=== PATIENT | female | born 1960 | race Caucasian/White ===

== ENCOUNTER 2017-05-18 11:26 | Day surgery (SDC) | payer OTHER ==
[2017-05-18 11:55] VITALS: BMI 34.3
[2017-05-18 12:32] VITALS: TEMP 98.1
[2017-05-18 14:31] VITALS: BP 135/73; PULSE 60
== END 2017-05-18 14:32 | disposition home or self-care (01) ==
LOC: JASU-ENDO 11:26
PROVIDERS: ATTEND Internal Medicine Gastroenterology
PROC: 0DJD8ZZ Inspection of Lower Intestinal Tract, Via Natural or Artificial Opening Endoscopic (ICD-10-PCS; principal; 2017-05-18 12:30)
DX: Z12.11 Encounter for screening for malignant neoplasm of colon (principal); K57.30 Diverticulosis of large intestine without perforation or abscess without bleeding; K64.8 Other hemorrhoids

== ENCOUNTER 2017-12-04 08:21 | Emergency (ER) | payer OTHER ==
--- NOTE | 2017-12-04 08:42 | PDOC ---
History of Present Illness - General Chief Complaint: Respiratory Stated Complaint: PT WANTS TO BE RE CHECKED FOR RESPIRATORY PRB Time Seen by Provider: 12/04/17 08:24 History Source: Patient Exam Limitations: No Limitations - History of Present Illness Initial Comments: 12/04/17 08:38 57 y/o female with history of breast cancer, presents to the ER with mild chest pressure and cough. Patient states that she has seen her PMD twice in 1 week and placed on inhaler and antibiotic. Patient denies any hx of asthma. No wheezing. No back pain, fever or chills. No N/V/d/C. No fall or trauma. Denies traveling as well. Timing/Duration: reports: week Severity: reports: mild Associated Symptoms: reports: chest pain/soreness, cough Past History - Past Medical History Allergies/Adverse Reactions: Allergies Allergy/AdvReac Type Severity Reaction Status Date / Time No Known Drug Allergies Allergy Verified 06/18/16 11:05 Home Medications: Ambulatory Orders Losartan 50Mg/Hctz 12.5MG [Hyzaar -] 1 tab PO DAILY 07/03/13 Anastrozole [Arimidex -] 1 mg PO DAILY 06/18/16 Albuterol Sulfate Inhaler - [Ventolin HFA Inhaler -] 2 puff IH QID 12/04/17 Amoxicillin - [Amoxicillin 875mg Tablet -] 875 mg PO BID 12/04/17 Benzonatate 100 mg PO BID 12/04/17 Anemia: No Asthma: No Cancer: Yes (BREAST, radiation) Cardiac Disorders: No CVA: No COPD: No CHF: No Dementia: No Diabetes: No GI Disorders: Yes (GERD) Disorders: No HTN: Yes Hypercholesterolemia: No Liver Disease: No Seizures: No Thyroid Disease: No - Surgical History Abdominal Surgery: Yes Appendectomy: No Cardiac Surgery: No Cholecystectomy: Yes Lung Surgery: No Neurologic Surgery: No Orthopedic Surgery: Yes (FOOT SURGERY LEFT) - Suicide/Smoking/Psychosocial Hx Smoking Status: No Smoking History: Former smoker Have you smoked in the past 12 months: No Number of Cigarettes Smoked Daily: 0 If you are a former smoker, when did you quit?: 30 yrs ago Hx Alcohol Use: Yes (OCC) Drug/Substance Use Hx: No Substance Use Type: None Hx Substance Use Treatment: No Respiratory Specific PMHX - Complaint Specific PMHX Angina: No Review of Systems - Review of Systems Able to Perform ROS?: Yes Is the patient limited Bulgarian proficient: No Constitutional: No: Chills, Fever HEENTM: No: Nose Congestion Respiratory: Yes: Cough. No: Shortness of Breath Cardiac (ROS): Yes: Chest Pain. No: Edema (d) ABD/GI: No: Diarrhea, Nausea, Vomiting All Other Systems: Reviewed and Negative *Physical Exam - Physical Exam General Appearance: Yes: Nourished, Appropriately Dressed. No: Apparent Distress HEENT: positive: EOMI, FABIÁN, Normal ENT Inspection, Normal Voice Neck: positive: Trachea midline, Normal Thyroid, Supple. negative: Tender, Rigid Respiratory/Chest: positive: Lungs Clear, Normal Breath Sounds. negative: Chest Tender, Respiratory Distress Cardiovascular: positive: Regular Rhythm, Regular Rate, S1, S2. negative: Edema , JVD, Murmur Vascular Pulses: Femoral (R): 4+, Femoral (L): 4+, Carotid (R): 4+, Carotid (L) : 4+, Dorsalis-Pedis (R): 4+, Doralis-Pedis (L): 4+ Gastrointestinal/Abdominal: positive: Normal Bowel Sounds, Flat, Soft. negative : Tender, Organomegaly, Pulsatile Mass Lymphatic: negative: Adenopathy, Tenderness, Other Musculoskeletal: positive: Normal Inspection. negative: CVA Tenderness Extremity: positive: Normal Capillary Refill, Normal Inspection, Normal Range of Motion. negative: Swelling, Calf Tenderness Integumentary: positive: Normal Color, Dry, Warm Neurologic: positive: fire watcher II-XII NML intact, Fully Oriented, Alert, Normal Mood/ Affect, Normal Response, Motor Strength 5/5 Heart Score/ECG Review - ECG Intrepretation Rhythm: Regular Rhythm Comment:: 12/04/17 09:06 heart rate 56 - Antimony Antimony: Normal - ECG Impressions Normal ECG: Yes Ischemic Changes: No Comment:: 12/04/17 09:07 Sinus bradycardia No STEMI ED Treatment Course - LABORATORY CBC & Chemistry Diagram: 12/04/17 09:09 12/04/17 09:09 - ADDITIONAL ORDERS Additional order review: 12/04/17 13:49 US legs neg for DVT - RADIOLOGY Radiology Studies Ordered: Category Date Time Status CHEST CTA [CT] Stat CT Scan 12/04/17 08:36 Ordered 12/04/17 13:49 Dr. Elliott will determine weather to place on anti coagulants, pt is in agreement with this. Dr. Elliott wants to place on Aspirin and see in office, no admission at this time. Progress Note - Progress Note Progress Note: Chest pressure/cough/mild SOB. Has been to PMD twice, will r/o PE Patient is in agreement with plan Spoke with Dr. Elliott, aware of PE, small distal subsegmental branch, will place on Aspirin daily and see in office as long as legs negative for DVT Pt is in agreement with plan, vitals stable. CT scan shows no pneumonia, right lower distal subsegmental PE *DC/Admit/Observation/Transfer Diagnosis at time of Disposition: Pulmonary embolism Qualifiers: Pulmonary embolism type: other Chronicity: acute Acute cor pulmonale presence: without acute cor pulmonale Qualified Code(s): I26.99 - Other pulmonary embolism without acute cor pulmonale - Discharge Dispostion Disposition: HOME Condition at time of disposition: Stable Admit: No - Referrals Referrals: Mansi Elliott MD [Staff Physician] - - Patient Instructions Printed Discharge Instructions: DI for Pulmonary Embolism Additional Instructions: Fluids, rest, Tylenol Aspirin 325 mg daily Follow up with Dr. Elliott on Wednesday If worsening symptoms return to ER - Post Discharge Activity
[2017-12-04 08:57] VITALS: BMI 32.3
[2017-12-04 09:13] LABS: BASO % 0.8 % (0-2.0); EOS % 2.4 % (0-4.5); HEMOGLOBIN 12.3 GM/dl (10.7-15.3); LYMPH % 23.8 % (8-40); MCHC 33.2 g/dl (32.0-36.0); MEAN CELL VOLUME 93.5 fl (80-96); MEAN PLT VOLUME 7.5 fl (7.5-11.1); MONO % 7.3 % (3.8-10.2); NEUT % 65.7 % (42.8-82.8); PLATELET COUNT 299 K/MM3 (134-434); RBC 3.95 M/mm3 (3.60-5.2); RDW 11.9 % (11.6-15.6); WHITE BLOOD COUNT 6.6 K/mm3 (4.0-10.8)
[2017-12-04 09:28] LABS: ALBUMIN 4.2 g/dl (3.5-5.0); ALK PHOS 66 U/L (32-92); ANION GAP 9 (8-16); BILIRUBIN,TOTAL 0.8 mg/dl (0.2-1.0); BLOOD UREA NITROGEN 19 mg/dl (7-18); CALCIUM 9.2 mg/dl (8.4-10.2); CHLORIDE 103 mmol/L (98-107); CO2 26 mmol/L (22-28); CREATININE 0.6 mg/dl (0.6-1.3); GLUCOSE,RANDOM 98 mg/dl (74-106); POTASSIUM 3.9 mmol/L (3.5-5.1); SGOT/AST 19 U/L (10-42); SGPT/ALT 19 U/L (10-40); SODIUM 138 mmol/L (136-145); TOT PROT 7.5 g/dl (6.4-8.3)
[2017-12-04 11:37] VITALS: BP 146/79; PULSE 60; TEMP 98.1
--- NOTE | 2017-12-04 16:34 | EKG ---
Test Reason : Blood Pressure : / mmHG Vent. Rate : 056 BPM Atrial Rate : 056 BPM P-R Int : 200 ms QRS Dur : 084 ms QT Int : 434 ms P-R-T Axes : 020 005 007 degrees QTc Int : 418 ms SINUS BRADYCARDIA OTHERWISE NORMAL ECG WHEN COMPARED WITH ECG OF 05-JUL-2013 08:56, [place] INTERVAL HAS DECREASED Confirmed by MAINE WHITE MD ([id number]) on 12/04/2017 4:33:58 PM Referred By: DAVID LANDAVERDE Confirmed By:MAINE WHITE MD
== END 2017-12-04 14:00 | disposition home or self-care (01) ==
LOC: FER 08:21
DX: I26.99 Other pulmonary embolism without acute cor pulmonale (principal); Z85.3 Personal history of malignant neoplasm of breast; I10 Essential (primary) hypertension; K21.9 Gastro-esophageal reflux disease without esophagitis; Z87.891 Personal history of nicotine dependence
CPT/HCPCS: 36415; 71275-TC; 80053; 84484; 85025; 93005; 93970-TC; 99283-25

== ENCOUNTER → 2020-09-11 | Day surgery (SDC) | payer OTHER ==
--- NOTE | 2020-09-11 11:45 | OP ---
DATE OF OPERATION: 09/11/2020 PREOPERATIVE DIAGNOSIS: Abnormal left mammography. POSTOPERATIVE DIAGNOSIS: Abnormal left mammography. PROCEDURE: Left stereotactic needle biopsy with clip. SURGEON: Zoila Shoemaker MD ANESTHESIA: Local. COMPLICATIONS: None. This was a sterile procedure. INDICATION FOR PROCEDURE: Patient had a left breast lumpectomy, sentinel node biopsy, and on recent imaging noted increasing calcifications at the lumpectomy site in the upper left breast. My recommendation was needle biopsy. The procedure was discussed with her, including the need for a clip . PROCEDURE IN DETAIL: Patient was brought to [facility] in [place], laid prone on the Lorad table. Using the cranial approach, the calcifications within the lumpectomy site in the upper left breast were identified. A sterile prep was obtained. A target was chosen. There was a positive stroke margin. Using Betadine and 1% lidocaine, a 9-gauge Suros device was used to take several cores from this area. Cores were with calcifications within them. These were handled with the usual calcification protocol. A clip was deployed in the area. Hemostasis was assured with direct pressure. Incision was closed with Steri-Strips. She tolerated the procedure well and left the breast imaging center in good condition. ZOILA SHOEMAKER M.D. [id number]
--- NOTE | 2020-09-12 16:48 | PATH ---
Surgical Pathology Report Patient Name: KERA PICHARDO [facility]. Rec. #: [id number] /Age/Gender: 1960 (Age: 60) / F Account: [id number] Location: [facility] Taken: 09/11/2020 Received: 09/11/2020 Reported: 09/12/2020 Physicians: Zoila Mckeon M.D. Specimen(s) Received A: LEFT BREAST SPECIMEN WITH CALCIFICATIONS B: LEFT BREAST SPECIMEN WITHOUT CALCIFICATIONS Clinical History Nonpalpable lesion Mammographic findings: Microcalcification, suspicious Final Diagnosis A. LEFT BREAST SPECIMEN WITH CALCIFICATIONS, STEREOTACTIC BIOPSY: FIBROADIPOSE TISSUE WITH CHRONIC INFLAMMATION, FOREIGN BODY TYPE MULTINUCLEATED GIANT CELLS REACTION, CHRONIC INFLAMMATION, OLD HEMORRHAGE (HEMOSIDERIN LADEN MACROPHAGES), AND ASSOCIATED CALCIFICATIONS. B. LEFT BREAST SPECIMEN WITHOUT CALCIFICATIONS, STEREOTACTIC BIOPSY: FIBROADIPOSE TISSUE WITH CHRONIC INFLAMMATION, FOREIGN BODY MULTINUCLEATE GIANT CELLS REACTION, CHRONIC INFLAMMATION, AND OLD HEMORRHAGE (HEMOSIDERIN LADEN MACROPHAGES). Electronically Signed Ricci Young M.D. Gross Description A. Received in formalin labeled "left breast with calcifications," is a 2.5 x 2.0 x 0.3 cm aggregate of keith-yellow, irregular to cylindrical portions of fibroadipose tissue. The formalin is filtered and the specimen is entirely submitted in 2 cassettes. B. Received in formalin labeled "left breast without calcifications," is a 1.8 x 1.1 x 0.3 cm aggregate of keith-yellow, irregular to cylindrical portions of fibroadipose tissue. The formalin is filtered and the specimen is entirely submitted in one cassette. Time to formalin fixation: 5 minutes Total formalin fixation time: Approximately 8 hours. /09/11/2020 [facility]09/11/2020
== END | disposition home or self-care (01) ==
LOC: FMAMMOTONE 09:10
PROVIDERS: ATTEND Surgery
PROC: 0HBU3ZX Excision of Left Breast, Percutaneous Approach, Diagnostic (ICD-10-PCS; principal; 2020-09-11)
DX: N64.89 Other specified disorders of breast (principal); R92.8 Other abnormal and inconclusive findings on diagnostic imaging of breast
CPT/HCPCS: 19081; 76098-TC-FY; 88305-TC

== ENCOUNTER 2021-04-28 07:33 | Emergency (ER) | payer OTHER ==
[2021-04-28 07:45] VITALS: BP 139/78; PULSE 56; TEMP 97.2; BMI 29.0
== END 2021-04-28 08:42 | disposition home or self-care (01) ==
LOC: JER 07:33
DX: S80.811A Abrasion, right lower leg, initial encounter (principal)
CPT/HCPCS: 99281-25

== ENCOUNTER 2023-08-06 13:43 | Emergency (ER) | payer OTHER ==
[2023-08-06 14:10] VITALS: BP 130/60; PULSE 60; RESP 16; TEMP 99; BMI 28.8
[2023-08-06] MEDS ORDERED: METHOCARBAMOL 500 MG TABLET PO ONE (14:32)
[2023-08-06] MEDS ORDERED: ACETAMINOPHEN 325 MG TABLET (FP) PO ONE (14:32)
[2023-08-06] MEDS ORDERED: METHOCARBAMOL 500 MG TABLET ONE (14:56)
[2023-08-06] MEDS ORDERED: ACETAMINOPHEN 325 MG TABLET (FP) ONE (14:56)
== END 2023-08-06 16:12 | disposition home or self-care (01) ==
LOC: FER 13:43
DX: M54.42 Lumbago with sciatica, left side (principal); M25.552 Pain in left hip
CPT/HCPCS: 72100-TC-FY; 73502-TC-LT-FY; 99283-25

== ENCOUNTER 2023-10-12 14:45 | Emergency (ER) | payer OTHER ==
[2023-10-12 14:53] VITALS: BP 130/82; PULSE 65; RESP 18; TEMP 98.5; BMI 31.9
[2023-10-12] MEDS ORDERED: FAMOTIDINE 20 MG/50 ML IVPB 20 MG/50 ML MG IVPB ONE ×2 (15:08→15:26)
[2023-10-12] MEDS ORDERED: MAG HYDROX/AL HYDROX/SIMETH 30 ML UNIT-DOSE CUP PO ONE (15:08)
[2023-10-12] MEDS ORDERED: PANTOPRAZOLE SODIUM 40 MG VIAL IVPUSH ONE (15:26)
[2023-10-12] MEDS ORDERED: MAG HYDROX/AL HYDROX/SIMETH 30 ML UNIT-DOSE CUP ONE (15:26)
[2023-10-12 15:39] LABS: MCH 31.3 pg (25.7-33.7); MCHC 33.4 g/dl (32.0-36.0); MEAN CELL VOLUME 93.7 fl (80-96); MEAN PLT VOLUME 8.2 fl (7.5-11.1); PLATELET COUNT 231.3 10^3/uL (134-434); RBC 3.84 10^6/uL (3.60-5.2); RDW 13.5 % (11.6-15.6); WHITE BLOOD COUNT 8.2 10^3/uL (4.0-10.8)
[2023-10-12 15:42] LABS: PLATELET ESTIMATE ADEQUATE
[2023-10-12] MEDS ORDERED: PANTOPRAZOLE SODIUM 40 MG VIAL ONE (15:43)
[2023-10-12 15:46] LABS: ALBUMIN 4.2 g/dl (3.4-5.0); BILIRUBIN,TOTAL 0.5 mg/dl (0.2-1); CALCIUM 9.2 mg/dl (8.5-10.1); CREATININE 0.7 mg/dl (0.6-1.3); POTASSIUM 3.9 mmol/L (3.5-5.1); TOT PROT 6.5 g/dl (6.4-8.2)
== END 2023-10-12 16:40 | disposition home or self-care (01) ==
LOC: FER 14:45
PROC: 3E033GC Introduction of Other Therapeutic Substance into Peripheral Vein, Percutaneous Approach (ICD-10-PCS; principal; 2023-10-12)
PROC: 3E033GC Introduction of Other Therapeutic Substance into Peripheral Vein, Percutaneous Approach (ICD-10-PCS; 2023-10-12)
DX: K21.9 Gastro-esophageal reflux disease without esophagitis (principal); R10.13 Epigastric pain
CPT/HCPCS: 36415; 71046-TC-FY; 80053; 84484; 85027; 93005; 96365; 96375; 99285-25

== ENCOUNTER 2025-03-24 09:22 | Emergency (ER) | payer OTHER ==
[2025-03-24 09:31] VITALS: BP 124/73; PULSE 76; RESP 18; TEMP 98.1; BMI 29.8
[2025-03-24] MEDS ORDERED: IBUPROFEN 600 MG TABLET (FP) PO ONE (09:44)
[2025-03-24] MEDS ORDERED: LIDOCAINE 5% TOPICAL PATCH TP ONE (09:44)
[2025-03-24] MEDS ORDERED: ACETAMINOPHEN 500 MG TABLET (FP) PO ONE (09:44)
[2025-03-24] MEDS ORDERED: IBUPROFEN 400 MG TABLET (FP) PO ONE (09:47)
[2025-03-24] MEDS ORDERED: LIDOCAINE 5% TOPICAL PATCH ONE (09:48)
[2025-03-24] MEDS ORDERED: ACETAMINOPHEN 500 MG TABLET (FP) ONE (09:48)
[2025-03-24] MEDS ORDERED: LIDOCAINE PATCH REMOVAL MC SCH (22:00)
== END 2025-03-24 10:40 | disposition home or self-care (01) ==
LOC: FER 09:22
DX: M62.830 Muscle spasm of back (principal); R00.1 Bradycardia, unspecified
CPT/HCPCS: 71046-TC-FY; 93005; 99284-25

== ENCOUNTER 2025-07-05 15:42 | Emergency (ER) | payer OTHER ==
[2025-07-05 15:52] VITALS: BP 129/85; PULSE 58; RESP 16; TEMP 98.8; BMI 29.8
[2025-07-05 17:17] LABS: EPITHELIAL CELLS 0-5 /hpf
[2025-07-05 20:33] LABS: HIV INTERPRETATION NEGATIVE (NEGATIVE)
[2025-07-05 20:34] LABS: HCV DIAGNOSTIC IN-HOUSE W/RFLX NON-REACTIVE (NONREACTIVE)
== END 2025-07-05 17:12 | disposition home or self-care (01) ==
LOC: FER 15:42
DX: R05.9 Cough, unspecified (principal)
CPT/HCPCS: 36415; 71046-TC-FY; 81003; 81015; 86803; 87389; 99284-25